=== PATIENT | female | born 1960 | race Caucasian/White ===

== ENCOUNTER → 2017-05-04 | Outpatient (REF) ==
[2017-05-04 19:09] LABS: THYROID STIMULATING HORMONE 2.45 uIU/mL (0.465-4.680)
== END ==
LOC: ZLAB.WCH 18:14
PROVIDERS: Family Medicine
DX: Z01.89 Encounter for other specified special examinations (principal)

== ENCOUNTER → 2017-09-03 | Outpatient (REF) | LOC: ZLAB.WCH 18:02 | DX: Z01.89 Encounter for other specified special examinations (principal) ==

== ENCOUNTER 2024-06-20 09:56 | Day surgery (SDC) | payer MEDICARE, BC ==
[~2024-06-20] VITALS: Ht 160 cm; Wt 101.7 kg
[~2024-06-20 09:56] MED LIST: AMITRIPTYLINE H50 M1 PO; CIPRO 500MG TA500 MG PO; CYMBALTA 30MG30 MG PO; D3 PO; ESTRACE0.5 MG PO; FLAGYL500 MG PO; FLONASEALLERGY NS; HCTZ12.5TAB PO; LR 1,000 ML IV SCH; MOTRIN 600600 MG/TAB PO; MULTI VITAMINS1 TAB PO; NORCO 325 MG-51 TAB PO; PROTONIX 40MG T40 MG PO; ZANAFLEX 4MG TAB4 MG PO
[2024-06-20] MEDS ORDERED: Lidocaine PF 2% (20 MG/ML) 5 ML VIAL ONE (10:29)
[2024-06-20] MEDS ORDERED: fentaNYL 50 MCG/ML 2 ML VIAL ONE (10:29)
[2024-06-20 10:36] VITALS: BP 122/82; PULSE 84; TEMP 98.4
[2024-06-20] MEDS ORDERED: Clindamycin 0 ML IV ONE (10:53)
[2024-06-20] MEDS ORDERED: Iohexol 300 - 10 ML VIAL URETER-R ONE (11:20)
[2024-06-20] MEDS ORDERED: Ondansetron 4 MG/2 ML VIAL ONE (11:25)
[2024-06-20] MEDS ORDERED: Lidocaine 2% (20 MG/ML) 20 ML UROJET UR ONE (11:28)
[2024-06-20] MEDS ORDERED: Ketorolac 15 MG/ML VIAL IV PRN (11:30)
[2024-06-20] MEDS ORDERED: Hyoscyamine 0.125 MG Sublingual TAB SL PRN (11:30)
[2024-06-20] MEDS ORDERED: oxyCODONE/Acetaminophen 5-325 MG TAB PO PRN (11:30)
[2024-06-20] MEDS ORDERED: PERCOCET 325 MG1 TA2 PO (11:33)
[2024-06-20] MEDS ORDERED: HYDROmorphone 1 MG/1 ML SYRINGE [PACU/SDC ONLY] IV PRN (11:45)
[2024-06-20] MEDS ORDERED: Ondansetron 4 MG/2 ML VIAL IV PRN (11:45)
[2024-06-20] MEDS ORDERED: fentaNYL 50 MCG/ML 1 ML SYRINGE/VIAL [PACU/SDC ONLY] IV PRN (11:45)
[2024-06-20 12:08] VITALS: BP 108/51; PULSE 79; TEMP 98.3
--- NOTE | 2024-06-20 12:08 | NUR ---
PATIENT RETURNS TO ROOM 6 PER CART FROM PACU ACCOMPANIED BY POOJA SANTANA AND IS AWAKE AND ALERT. DENIES PAIN OR NAUSEA. IVF INFUSING. DRINKING WATER. SON IN ROOM. CALL LIGHT IN REACH.
[2024-06-20 12:23] VITALS: BP 121/65; PULSE 83
--- NOTE | 2024-06-20 12:23 | NUR ---
EATING PUDDING AND DRINKING WATER. CONTINUES TO DENY PAIN OR NAUSEA.
[2024-06-20 12:38] VITALS: BP 112/75; PULSE 85
--- NOTE | 2024-06-20 12:38 | NUR ---
IV DISCONTINUED AND SITE IS FREE OF REDNESS. ASSISTED UP TO THE BATHROOM. ABLE TO VOID AND RETURNS TO ROOM.
--- NOTE | 2024-06-20 12:45 | NUR ---
PATIENT IS DRESSING SELF. CONTINUES TO DENY PAIN OR NAUSEA.
--- NOTE | 2024-06-20 12:53 | NUR ---
PATIENT DISCHARGED TO HOME DRIVEN BY SON PER PRIVATE VEHICLE AND TAKEN TO CAR PER WHEELCHAIR AND ASSISTED INTO VEHICLE WITH DISMISSAL INSTRUCTIONS IN HAND.
== END 2024-06-20 12:53 | disposition home or self-care (01) ==
LOC: SDCO 09:56
DX: N13.2 Hydronephrosis with renal and ureteral calculous obstruction (principal)
CPT/HCPCS: C1769; C2617; J0690; J0737; J1956; J2405; J2704; J3010; J7120; Q9967

== ENCOUNTER 2024-07-07 05:17 | Day surgery (SDC) | payer MEDICARE, BC ==
[~2024-07-07] VITALS: Ht 162.6 cm; Wt 98.5 kg
[~2024-07-07 05:17] MED LIST changes: -LR 1,000 ML IV SCH; +PERCOCET 325 MG1 TA2 PO
[2024-07-07] MEDS ORDERED: LR 1,000 ML IV SCH (06:00)
[2024-07-07] MEDS ORDERED: AMITRIPTYLINE H50 M1 PO (06:16)
[2024-07-07] MEDS ORDERED: ZANAFLEX 4MG TAB4 MG PO (06:21)
[2024-07-07] MEDS ORDERED: NORCO 325 MG-101 TAB PO (06:27)
[2024-07-07] MEDS ORDERED: SEPTRA DS 8001 TAB PO (06:37)
[2024-07-07 06:41] VITALS: BP 114/76; PULSE 91; TEMP 97.7
[2024-07-07] MEDS ORDERED: Ondansetron 4 MG/2 ML VIAL IV PRN (06:45)
[2024-07-07] MEDS ORDERED: HYDROmorphone 1 MG/1 ML SYRINGE [PACU/SDC ONLY] IV PRN (06:45)
[2024-07-07] MEDS ORDERED: droPERidol 2.5 MG/ML 2 ML VIAL IV PRN (06:45)
[2024-07-07] MEDS ORDERED: fentaNYL 50 MCG/ML 1 ML SYRINGE/VIAL [PACU/SDC ONLY] IV PRN (06:45)
[2024-07-07] MEDS ORDERED: hydrALAZINE 20 MG/ML 1 ML VIAL IV PRN (06:45)
[2024-07-07] MEDS ORDERED: fentaNYL 50 MCG/ML 2 ML VIAL ONE (06:45)
[2024-07-07] MEDS ORDERED: Glycopyrrolate 0.2 MG/ML 1 ML VIAL ONE (06:46)
[2024-07-07] MEDS ORDERED: Ketorolac 30 MG/ML VIAL ONE (06:46)
[2024-07-07] MEDS ORDERED: Lidocaine PF 2% (20 MG/ML) 5 ML VIAL ONE (06:46)
[2024-07-07] MEDS ORDERED: dexAMETHasone 10 MG/ML VIAL ONE (06:46)
[2024-07-07] MEDS ORDERED: NS 10 ML IV ONE (06:46)
[2024-07-07] MEDS ORDERED: Ondansetron 4 MG/2 ML VIAL ONE (06:46)
[2024-07-07] MEDS ORDERED: Hyoscyamine 0.125 MG Sublingual TAB SL PRN (07:15)
[2024-07-07] MEDS ORDERED: oxyCODONE/Acetaminophen 5-325 MG TAB PO PRN (07:15)
[2024-07-07] MEDS ORDERED: Ketorolac 15 MG/ML VIAL IV PRN (07:15)
[2024-07-07] MEDS ORDERED: Lidocaine 2% (20 MG/ML) 20 ML UROJET UR ONE (07:26)
[2024-07-07] MEDS ORDERED: NORCO 325 MG-51 TAB PO (07:49)
[2024-07-07 08:20] VITALS: BP 106/67; PULSE 88; TEMP 98
--- NOTE | 2024-07-07 08:20 | NUR ---
PATIENT RETURNED TO BAY 7 VIA CART, ALERT AND ORIENTED X3. DENIES PAIN, NAUSEA AND SHORTNESS OF BREATH. BREATHING REGULAR AND UNLABORED ON ROOM AIR. SKIN WARM AND DRY. NURSE HANDOFF COMPLETED IN ROOM. SEE CHART FOR VITAL SIGNS. PATIENT REPORTED THAT SHE FELT "PRETTY GOOD" AND HAD VANILLA PUDDING AND WATER. NO DYSPHAGIA. SPOUSE, DIONI, PRESENT IN ROOM. CALL LIGHT IN REACH.
[2024-07-07 08:30] VITALS: BP 110/55; PULSE 83
[2024-07-07 08:43] VITALS: BP 104/46; PULSE 83
[2024-07-07 08:45] VITALS: BP 115/61; PULSE 83
[2024-07-07 09:01] VITALS: BP 113/68; PULSE 80
--- NOTE | 2024-07-07 09:32 | NUR ---
0859: DISCHARGE TEACHING COMPLETED WITH PRINTED EDUCATION AND INSTRUCTIONS SENT HOME WITH PATIENT. PATIENT INSTRUCTED TO WAIT FOR UROLOGY OFFICE TO CALL AND SCHEDULE FOLLOW UP APPOINTMENT. SEE DISCHARGE TAB FOR PRINTED INSTRUCTIONS. PATIENT VERBALIZED UNDERSTANDING. 0908: PATIENT DENIES PAIN AND NAUSEA. STATES SHE "FEELS GREAT" AND THAT SHE WOULD CALL THE UROLOGY OFFICE REGARDING ANY VOIDING DIFFICULTIES AT HOME. DENIES NEED TO VOID AT THIS TIME. LEFT HAND IV REMOVED. GAUZE AND COBAN PLACED OVER SITE. 0932: PATIENT DISCHARGED HOME WITH SPOUSE, DIONI, TRANSPORT.
== END 2024-07-07 09:32 | disposition home or self-care (01) ==
LOC: SDCO 05:17
DX: N20.1 Calculus of ureter (principal)
CPT/HCPCS: C1769; C2617; J0690; J1100; J1885; J1956; J2405; J2704; J3010; J7120

== ENCOUNTER → 2024-08-21 | Outpatient (CLI) | payer MEDICARE, BC ==
[~2024-08-21] MED LIST changes: +Gadoterate 20 ML VIAL IV ONE; +NORCO 325 MG-101 TAB PO; +SEPTRA DS 8001 TAB PO
== END ==
LOC: COL.RAD 07:34
DX: G82.50 Quadriplegia, unspecified (principal); H53.9 Unspecified visual disturbance; R25.1 Tremor, unspecified; R42 Dizziness and giddiness; R20.2 Paresthesia of skin
CPT/HCPCS: A9575